=== PATIENT | female | born 1955 | race Caucasian/White ===

== ENCOUNTER 2019-03-19 10:32 | Emergency (ER) | payer MEDICAID ==
[~2019-03-19] VITALS: Ht 167.6 cm; Wt 65.0 kg
[~2019-03-19 10:32] MED LIST: ASPI-1 PO; HYDR-4353 PO; METH-603 PO; OMEP20CA10 PO
[2019-03-19 10:37] VITALS: BP 134/82
[2019-03-19] MEDS ORDERED: CEPH-571 PO (11:20)
== END 2019-03-19 11:38 | disposition home or self-care (01) ==
LOC: ER 10:33
DX: S60.021A Contusion of right index finger without damage to nail, initial encounter (principal); L03.011 Cellulitis of right finger; Z88.0 Allergy status to penicillin; Z88.8 Allergy status to other drugs, medicaments and biological substances; Z88.2 Allergy status to sulfonamides; Z88.5 Allergy status to narcotic agent; Z79.82 Long term (current) use of aspirin; Z79.899 Other long term (current) drug therapy; W57.XXXA Bitten or stung by nonvenomous insect and other nonvenomous arthropods, initial encounter; Y93.89 Activity, other specified; Y92.89 Other specified places as the place of occurrence of the external cause; Y99.8 Other external cause status
CPT/HCPCS: 99283

== ENCOUNTER 2019-12-24 18:43 | Emergency (ER) | payer MEDICAID ==
[~2019-12-24] VITALS: Ht 167.6 cm; Wt 63.6 kg
[~2019-12-24 18:43] MED LIST changes: +CEPH-571 PO; -OMEP20CA10 PO; +OMEP20CA15 PO
[2019-12-24 19:16] LABS: CLARITY,URINE CLEAR (Clear); COLOR,URINE STRAW (Yellow); GLUCOSE, URINE NEGATIVE (Neg); KETONES,URINE NEGATIVE (Neg); LEUKOCYTE ESTERASE ,URINE NEGATIVE (Neg); NITRITES, URINE NEGATIVE (Neg); OCCULT BLOOD,URINE SMALL (Neg); PROTEIN,URINE NEGATIVE (Neg); UROBILINOGEN,URINE 0.2 E.U/dL (0.2-1.0)
[2019-12-24 19:23] LABS: UA COLLECTION TYPE CLN CATCH MIDSTREAM
[2019-12-24 19:26] LABS: BACTERIA,URINE NONE SEEN /HPF (Neg); RBC,URINE 0-2 /HPF (0-2); SQUAMOUS EPITHELIAL CELL,UR FEW /LPF (FEW); WBC,URINE 0-4 /HPF (0-4)
[2019-12-24] MEDS ORDERED: normal saline 1000ML IV soln IVB ONE (20:20)
[2019-12-24] MEDS ORDERED: morphine 4 MG/ML inj SYRINge IV ONE (20:20)
[2019-12-24] MEDS ORDERED: proCHLORperazine 10 MG/2 ml inj IV ONE (20:20)
[2019-12-24] MEDS ORDERED: LORazepam 2 mg/ml vial IV ONE (20:20)
--- NOTE | 2019-12-24 20:22 | NUR ---
Pt is pacing in the room and reports she is not able to get comfortable due to the pain. Pt given a gown and asked to change for a better physical examination by the provider.
[2019-12-24 22:21] VITALS: BP 108/65
== END 2019-12-24 23:00 | disposition home or self-care (01) ==
LOC: ER 18:43
DX: S39.012A Strain of muscle, fascia and tendon of lower back, initial encounter (principal); G89.29 Other chronic pain; F12.90 Cannabis use, unspecified, uncomplicated; F17.200 Nicotine dependence, unspecified, uncomplicated; Z88.0 Allergy status to penicillin; Z88.2 Allergy status to sulfonamides; Z88.6 Allergy status to analgesic agent; Z88.8 Allergy status to other drugs, medicaments and biological substances; Z79.2 Long term (current) use of antibiotics; Z79.1 Long term (current) use of non-steroidal anti-inflammatories (NSAID); Z98.890 Other specified postprocedural states; X58.XXXA Exposure to other specified factors, initial encounter; Y93.89 Activity, other specified; Y92.89 Other specified places as the place of occurrence of the external cause; Y99.8 Other external cause status
CPT/HCPCS: 81001; 96374; 96375; 99283; J0780; J2060; J2270; J7030

== ENCOUNTER 2021-03-14 03:41 | Emergency (ER) | payer MEDICARE, MEDICAID ==
[~2021-03-14] VITALS: Ht 167.6 cm; Wt 63.2 kg
[2021-03-14 03:46] VITALS: BP 145/79
== END 2021-03-14 05:07 | disposition home or self-care (01) ==
LOC: ER 03:42
DX: Z02.89 Encounter for other administrative examinations (principal); R51.9 Headache, unspecified; G89.29 Other chronic pain; F17.200 Nicotine dependence, unspecified, uncomplicated; F12.90 Cannabis use, unspecified, uncomplicated; Z87.440 Personal history of urinary (tract) infections; Z98.890 Other specified postprocedural states; Z88.0 Allergy status to penicillin; Z88.2 Allergy status to sulfonamides; Z88.5 Allergy status to narcotic agent; Z88.8 Allergy status to other drugs, medicaments and biological substances; Z79.82 Long term (current) use of aspirin; Z79.2 Long term (current) use of antibiotics; Z79.899 Other long term (current) drug therapy
CPT/HCPCS: 99281